=== PATIENT | male | born 1975 | race Caucasian/White ===

== ENCOUNTER 2022-04-28 06:31 | Inpatient (IN) | payer OTHER ==
[~2022-04-28] VITALS: Ht 177.8 cm; Wt 95.5 kg
[~2022-04-28 06:31] MED LIST: AMLO-257 PO; BUPIVACAINE LIPOSOME/PF 1.3%-13.3MG/ML SUSPENSION 20 ML VIAL INJ ONE; LEVO200 PO; TRANEXAMIC ACID 1,000 MG in DEXTROSE 5%-WATER 50 ML IV ONE
[2022-04-28 06:50] LABS: COVID AG,FIA SOURCE NASAL SWAB
[2022-04-28] MEDS ORDERED: RINGERS SOLUTION,LACTATED 1,000 ML IV ONE ×3 (07:23→11:15)
[2022-04-28] MEDS ORDERED: VANCOMYCIN HCL 1 GM/VIAL ONE ×2 (07:58)
[2022-04-28] MEDS ORDERED: SODIUM CHLORIDE 0.9% 20 ML ONE (07:59)
[2022-04-28] MEDS ORDERED: BUPIVACAINE HCL/PF 0.5% 30 ML VIAL ONE (08:00)
[2022-04-28] MEDS ORDERED: ACETAMINOPHEN 1000 MG/ISO-OSM 100 ML IV ONE ×3 (08:03→12:45)
[2022-04-28] MEDS ORDERED: CeFAZolin 2 GM/DEXTROSE 50 ML IV ONE (08:30)
[2022-04-28] MEDS ORDERED: BUPIVACAINE 0.25%/EPI 1:200,000/PF 10 ML VIAL ONE ×2 (11:02)
[2022-04-28] MEDS ORDERED: BUPIVACAINE HCL/PF 0.25% 30 ML VIAL ONE (11:02)
[2022-04-28] MEDS ORDERED: MEPERIDINE-PF 25 MG/ML VIAL IVP PRN (11:30)
[2022-04-28] MEDS ORDERED: SUGAMMADEX SODIUM 200 MG/2 ML VIAL IVP ONE (11:48)
[2022-04-28] MEDS ORDERED: HYDROmorphone HCL 2 MG/ML SYRINGE ONE (12:27)
[2022-04-28] MEDS ORDERED: FentaNYL CITRATE PF 100 MCG/2 ML VIAL ONE (12:30)
[2022-04-28] MEDS: FentaNYL CITRATE PF 100 MCG/2 ML VIAL IVP PRN ×2 (12:31→13:47)
[2022-04-28] MEDS: HYDROmorphone HCL 2 MG/ML SYRINGE IVP PRN ×5 (13:01→23:28)
[2022-04-28] MEDS ORDERED: ONDANSETRON HCL 4 MG/2 ML VIAL IVP PRN (15:30)
[2022-04-28] MEDS ORDERED: ZOLPIDEM TARTRATE 5 MG TABLET PO PRN (15:30)
[2022-04-28] MEDS ORDERED: ACETAMINOPHEN 325 MG TABLET PO PRN (15:30)
[2022-04-28] MEDS ORDERED: MORPHINE SULFATE 2 MG/ML SYRINGE IVP PRN (15:30)
[2022-04-28] MEDS ORDERED: BISACODYL 10 MG RECTAL RECTAL SUPPOSITORY PR PRN (15:30)
[2022-04-28] MEDS ORDERED: HYDROCODONE/ACETAMINOPHEN 5-325 MG TABLET PO PRN (15:30)
[2022-04-28] MEDS ORDERED: MAGNESIUM HYDROXIDE SUSPENSION 30 ML UDCUP PO PRN (15:30)
[2022-04-28 15:54] VITALS: BP 118/69
[2022-04-28] MEDS: CYCLOBENZAPRINE HCL 10 MG TABLET PO SCH ×2 (16:00→19:55)
[2022-04-28 19:50] VITALS: BP 130/70
[2022-04-28] MEDS: DOCUSATE SODIUM 100 MG CAPSULE PO SCH (19:55)
[2022-04-28] MEDS: OxyCODONE HCL/ACETAMINOPHEN 5-325 MG TABLET PO PRN (19:55)
[2022-04-28] MEDS: AmLODIPine BESYLATE 5 MG TABLET PO SCH (19:55)
[2022-04-28] MEDS ORDERED: OXYGEN THERAPY IH SCH (20:00)
[2022-04-29] MEDS: OxyCODONE HCL/ACETAMINOPHEN 5-325 MG TABLET PO PRN (04:32)
[2022-04-29 04:45] VITALS: BP 111/65
[2022-04-29] MEDS ORDERED: LEVOTHYROXINE SODIUM 200 MCG TABLET PO SCH (06:30)
[2022-04-29] MEDS ORDERED: MIDAZOLAM HCL 2 MG/2 ML VIAL IVP ONE (06:42)
[2022-04-29] MEDS ORDERED: FentaNYL CITRATE PF 100 MCG/2 ML VIAL IVP ONE (06:42)
[2022-04-29] MEDS ORDERED: ROCURONIUM BROMIDE 10 MG/ML 5 ML VIAL IVP ONE (06:42)
[2022-04-29] MEDS ORDERED: PROPOFOL 1% 20 ML VIAL IVP ONE (06:42)
[2022-04-29] MEDS ORDERED: METOCLOPRAMIDE HCL 5 MG/ML 2 ML VIAL IVP ONE (06:42)
[2022-04-29] MEDS ORDERED: MORPHINE SULFATE 4 MG/ML SYRINGE IVP ONE (06:42)
[2022-04-29] MEDS ORDERED: LIDOCAINE/PF 2% 5 ML SYRINGE IVP ONE (06:42)
[2022-04-29] MEDS ORDERED: ONDANSETRON HCL 4 MG/2 ML VIAL IVP ONE (06:42)
[2022-04-29] MEDS ORDERED: DEXAMETHASONE SOD PHOS 4 MG/ML VIAL IVP ONE (06:42)
[2022-04-29] MEDS ORDERED: KETAMINE HCL 50 MG/ML 10 ML VIAL IVP ONE (06:42)
[2022-04-29] MEDS ORDERED: CefoTEtan DISODIUM 1 GM/VIAL IVP ONE (06:42)
[2022-04-29] MEDS: HYDROmorphone HCL 2 MG/ML SYRINGE IVP PRN (07:03)
[2022-04-29 07:27] VITALS: BP 109/72
[2022-04-29 07:43] LABS: BASOPHILS % (AUTO) 0.2 % (0.0-2.0); EOSINOPHILS % (AUTO) 0.4 % (1.0-6.0); HEMATOCRIT 42.5 % (41-53); HEMOGLOBIN 14.4 g/dL (13.5-17.5); LYMPHOCYTES % (AUTO) 9.7 % (22.0-44.0); MEAN CORPUSCULAR HEMOGLOBIN 35.8 pg (26.0-34.0); MEAN CORPUSCULAR HGB CONC 33.9 G/dL (31.0-37.0); MEAN CORPUSCULAR VOLUME 106 fL (80-100); MONOCYTES # (AUTO) 0.7 K/uL (0.1-1.0); MONOCYTES % (AUTO) 6.4 % (2.0-9.0); NEUTROPHILS # (AUTO) 8.7 K/uL (1.8-7.7); NEUTROPHILS % (AUTO) 83.3 % (40.0-70.0); PLATELET COUNT (AUTO) 296 K/uL (150-450); RED BLOOD CELL COUNT(AUTO) 4.02 MIL/uL (4.50-5.90); RED CELL DISTRIBUTION WIDTH 13.2 % (11.5-14.5)
[2022-04-29] MEDS: DOCUSATE SODIUM 100 MG CAPSULE PO SCH (08:39)
[2022-04-29] MEDS: AmLODIPine BESYLATE 5 MG TABLET PO SCH (08:40)
[2022-04-29] MEDS: CYCLOBENZAPRINE HCL 10 MG TABLET PO SCH (08:40)
[2022-04-29] MEDS ORDERED: PANTOPRAZOLE SODIUM 40 MG DR TABLET PO SCH (09:00)
[2022-04-29 10:02] LABS: ANION GAP 4 mmol/L (8-16); CALCIUM, TOTAL 8.9 mg/dL (8.8-10.5); CARBON DIOXIDE 31 mmol/L (22-29); CHLORIDE 104 mmol/L (98-107); CREATININE 0.77 mg/dL (0.60-1.30); GLOMERULAR FILTR. RATE CALC > 60 mL/min (>60); GLUCOSE,RANDOM 105 mg/dL (70-110); POTASSIUM 3.9 mmol/L (3.5-5.1); SODIUM SERUM 139 mmol/L (136-145); UREA NITROGEN, BLOOD 11 mg/dL (7-18)
== END 2022-04-29 14:30 | disposition home or self-care (01) | DRG 460 ==
LOC: 6S 06:31
PROVIDERS: ADMIT Neurological Surgery; ATTEND Neurological Surgery
PROC: 0SB20ZZ Excision of Lumbar Vertebral Disc, Open Approach (ICD-10-PCS; 2022-04-28)
PROC: 0SG00A0 Fusion of Lumbar Vertebral Joint with Interbody Fusion Device, Anterior Approach, Anterior Column, Open Approach (ICD-10-PCS; principal; 2022-04-28 10:00)
DX: M48.061 Spinal stenosis, lumbar region without neurogenic claudication (principal); I10 Essential (primary) hypertension; E03.9 Hypothyroidism, unspecified; E66.9 Obesity, unspecified; Z20.822 Contact with and (suspected) exposure to COVID-19; M54.16 Radiculopathy, lumbar region; Z68.30 Body mass index [BMI] 30.0-30.9, adult; Z79.899 Other long term (current) drug therapy
CPT/HCPCS: 72100; 80048; 85025; 87081; 94760; C9290; J0131; J0690; J1100; J1170; J2250; J2270; J2405; J2704; J2765; J3010; J3370; J3490; J7060; J7120; Q9967